=== PATIENT | female | born 1935 | race Caucasian/White ===

== ENCOUNTER 2018-01-02 10:45 | Emergency (ER) | payer MEDICARE, OTHER ==
[~2018-01-02] VITALS: Ht 170.2 cm; Wt 88.0 kg
[~2018-01-02 10:45] MED LIST: Augmentin 875-1 EACH PO; CARV6.25 PO; CEPH500 PO; CLON.2; CLON.2 PO; DILT120 PO; FAMO20 PO; FLUO20; FURO40 PO; GABA100 PO; HYDACE5; HYDR1TAB94 PO; Hydrocodone-Ap1 EA23 PO; IBUP800; LANS15EC; LAVAP17G PO; LEVSOD100 PO; LOSA25 PO; OXYACE5T PO; Omeprazole20 M1 PO; PHENA200 PO; RXPHEN200 PO; RXSULTRIDS PO; SUCR1 PO; SULTRIDS PO; TRIAOIA; WARF2.5 PO; XARELTO15 MG PO
[2018-01-02 11:32] LABS: BASOPHILS ABSOLUTE AUTO 0.02 K/mm3 (0.00-0.23); BASOPHILS PERCENT AUTO 0 % (0-2); EOSINOPHILS PERCENT AUTO 0 % (0-6); Hematocrit 43.8 % (33.0-51.0); Hemoglobin 14.9 g/dL (11.5-16.0); IMMATURE GRAN ABSOLUTE AUTO 0.09 K/mm3 (0.00-0.10); IMMATURE GRAN PERCENT AUTO 1 % (0-1); LYMPHOCYTES ABSOLUTE AUTO 2.36 K/mm3 (0.84-5.20); LYMPHOCYTES PERCENT AUTO 26 % (21-46); MONOCYTES ABSOLUTE AUTO 1.05 K/mm3 (0.16-1.47); MONOCYTES PERCENT AUTO 12 % (4-13); Mean Corpuscular HGB 34.6 pg (26.0-34.0); Mean Corpuscular Volume 102 fL (80-100); Mean Platelet Volume 10.2 fL (9.1-12.4); NEUTROPHILS ABSOLUTE AUTO 5.59 K/mm3 (1.96-9.15); NEUTROPHILS PERCENT AUTO 61 % (41-73); Platelet Count 142 K/mm3 (150-400); RDW Coefficient Variation 13.1 % (11.7-14.2); RDW Standard Deviation 49.1 fL (35.1-46.3); Red Blood Cell Count 4.31 M/mm3 (3.80-5.20); White Blood Cell Count 9.11 K/mm3 (4.00-11.30)
[2018-01-02 11:44] LABS: International Normalized Ratio 1.26; Prothrombin Time Results 13.2 Sec (9.7-11.5)
[2018-01-02 11:50] LABS: Alanine Aminotransfer (ALT/SGP 22 U/L (12-78); Albumin, Blood 3.5 g/dL (3.4-5.0); Albumin/Globulin Ratio 0.9 (0.8-1.8); Alk Phos 86 U/L (50-136); Anion Gap 10 mmol/L (6-16); Aspartate Aminotrans (AST/SGOT 13 U/L (12-37); Bilirubin, Total 0.8 mg/dL (0.1-1.0); Blood Urea Nitrogen 35 mg/dL (8-24); Bun/Creatinine Ratio 26.3 (12.0-20.0); CO2, Blood 23 mmol/L (21-32); Calcium, Blood 8.6 mg/dL (8.5-10.1); Chloride, Blood 107 mmol/L (98-108); Creatinine, Blood 1.33 mg/dL (0.40-1.00); Globulin, Blood 4.1 g/dL (2.2-4.0); Glomerular Filtration Rate 41 (60-); Glucose, Blood 170 mg/dL (70-99); Potassium, Blood 3.6 mmol/L (3.5-5.5); Sodium, Blood 140 mmol/L (136-145); Total Protein, Blood 7.6 g/dL (6.4-8.2); Troponin I <0.015 ng/mL (0.000-0.040)
== END 2018-01-02 16:04 | disposition home or self-care (01) ==
LOC: ER 10:45
PROVIDERS: Emergency Medicine; Physician Assistant
DX: I48.91 Unspecified atrial fibrillation (principal); I10 Essential (primary) hypertension; Z79.01 Long term (current) use of anticoagulants; Z79.899 Other long term (current) drug therapy
CPT/HCPCS: 36415; 71046; 71260; 80053; 83880; 84484; 85025; 85379; 85610; 93005; 93010; 96374; 99284; J7030; Q9967

== ENCOUNTER 2018-01-23 20:36 | Emergency (ER) | payer MEDICARE, OTHER ==
[~2018-01-23] VITALS: Ht 170.2 cm; Wt 85.3 kg
[2018-01-23 22:47] LABS: Source, Urine Voided
[2018-01-23 22:48] LABS: BASOPHILS ABSOLUTE AUTO 0.04 K/mm3 (0.00-0.23); BASOPHILS PERCENT AUTO 1 % (0-2); EOSINOPHILS PERCENT AUTO 0 % (0-6); Hematocrit 33.3 % (33.0-51.0); Hemoglobin 11.4 g/dL (11.5-16.0); IMMATURE GRAN ABSOLUTE AUTO 0.03 K/mm3 (0.00-0.10); IMMATURE GRAN PERCENT AUTO 1 % (0-1); LYMPHOCYTES PERCENT AUTO 33 % (21-46); MONOCYTES ABSOLUTE AUTO 1.06 K/mm3 (0.16-1.47); MONOCYTES PERCENT AUTO 17 % (4-13); Mean Corpuscular HGB 34.9 pg (26.0-34.0); Mean Corpuscular HGB Conc 34.2 g/dL (31.5-36.5); Mean Corpuscular Volume 102 fL (80-100); Mean Platelet Volume 9.8 fL (9.1-12.4); NEUTROPHILS ABSOLUTE AUTO 3.19 K/mm3 (1.96-9.15); NEUTROPHILS PERCENT AUTO 50 % (41-73); Platelet Count 161 K/mm3 (150-400); RDW Coefficient Variation 13.7 % (11.7-14.2); RDW Standard Deviation 51.1 fL (35.1-46.3); Red Blood Cell Count 3.27 M/mm3 (3.80-5.20); White Blood Cell Count 6.42 K/mm3 (4.00-11.30)
[2018-01-23 22:49] LABS: Bilirubin, Urine Neg (Neg); Blood, Urine 1+ (Neg); Glucose Qualitative, Urine Neg (Neg); Ketones, Urine Neg (Neg); Leukocyte Esterase, Urine 3+ (Neg); Nitrite, Urine Neg (Neg); Protein, Urine Neg (Neg); Urobilinogen, Urine NORM (Normal)
[2018-01-23 23:00] LABS: Appearance, Urine Hazy (Clear); Color, Urine Yellow (P-Yellow)
[2018-01-23 23:01] LABS: Amorphous Light (0-Heavy); Bacteria Few /hpf; Red Blood Cells, Urine 0-2 /hpf (0-2); Squamous Epithelial Cells Rare /hpf (Few); White Blood Cells, Urine 50-100 /hpf (0-5)
[2018-01-23 23:41] LABS: Albumin, Blood 2.9 g/dL (3.4-5.0); Albumin/Globulin Ratio 0.8 (0.8-1.8); Bilirubin, Total 0.4 mg/dL (0.1-1.0); Bun/Creatinine Ratio 16.9 (12.0-20.0); Calcium, Blood 8.5 mg/dL (8.5-10.1); Creatinine, Blood 1.18 mg/dL (0.40-1.00); Globulin, Blood 3.5 g/dL (2.2-4.0); Potassium, Blood 3.4 mmol/L (3.5-5.5); Total Protein, Blood 6.4 g/dL (6.4-8.2)
[2018-01-24] MEDS ORDERED: Zofran Odt4 MG SL (00:11)
[2018-01-24] MEDS ORDERED: Norco 5-325 Ta1 EACH PO (00:11)
[2018-01-24] MEDS ORDERED: Augmentin 875-1 EACH PO (00:13)
== END 2018-01-24 00:37 | disposition home or self-care (01) ==
LOC: ER 20:36
PROVIDERS: Physician Assistant
DX: K57.32 Diverticulitis of large intestine without perforation or abscess without bleeding (principal); I48.91 Unspecified atrial fibrillation; I10 Essential (primary) hypertension; Z79.899 Other long term (current) drug therapy; Z79.01 Long term (current) use of anticoagulants
CPT/HCPCS: 36415; 74176; 80053; 81001; 83690; 85025; 87086; 93005; 93010; 96374; 99284; J3010

== ENCOUNTER → 2019-02-21 | Outpatient (CLI) | payer MEDICARE ==
[~2019-02-21] MED LIST changes: +Norco 5-325 Ta1 EACH PO; +PANT40 PO; +Zofran Odt4 MG SL
== END | disposition home or self-care (01) ==
LOC: LAB SHORT 15:35 → LAB SRC 15:35
DX: N39.0 Urinary tract infection, site not specified (principal); M54.5 Low back pain
CPT/HCPCS: 87077; 87086; 87186

== ENCOUNTER 2019-04-13 21:58 | Emergency (ER) | payer MEDICARE, OTHER ==
[~2019-04-13] VITALS: Ht 167.6 cm; Wt 81.7 kg
[2019-04-13 22:28] LABS: BASOPHILS ABSOLUTE AUTO 0.03 K/mm3 (0.00-0.23); BASOPHILS PERCENT AUTO 1 % (0-2); EOSINOPHILS PERCENT AUTO 0 % (0-6); Hematocrit 35.1 % (33.0-51.0); Hemoglobin 11.5 g/dL (11.5-16.0); IMMATURE GRAN ABSOLUTE AUTO 0.02 K/mm3 (0.00-0.10); IMMATURE GRAN PERCENT AUTO 0 % (0-1); LYMPHOCYTES ABSOLUTE AUTO 2.86 K/mm3 (0.84-5.20); LYMPHOCYTES PERCENT AUTO 47 % (21-46); MONOCYTES ABSOLUTE AUTO 1.06 K/mm3 (0.16-1.47); MONOCYTES PERCENT AUTO 17 % (4-13); Mean Corpuscular HGB 35.5 pg (26.0-34.0); Mean Corpuscular HGB Conc 32.8 g/dL (31.5-36.5); Mean Corpuscular Volume 108 fL (80-100); NEUTROPHILS ABSOLUTE AUTO 2.15 K/mm3 (1.96-9.15); NEUTROPHILS PERCENT AUTO 35 % (41-73); Platelet Count 110 K/mm3 (150-400); RDW Coefficient Variation 13.5 % (11.7-14.2); RDW Standard Deviation 54.6 fL (35.1-46.3); Red Blood Cell Count 3.24 M/mm3 (3.80-5.20); White Blood Cell Count 6.12 K/mm3 (4.00-11.30)
[2019-04-13 22:45] LABS: International Normalized Ratio 1.14; Prothrombin Time Results 11.9 Sec (9.7-11.5)
[2019-04-13 22:47] LABS: Alanine Aminotransfer (ALT/SGP 17 U/L (12-78); Albumin, Blood 3.7 g/dL (3.4-5.0); Albumin/Globulin Ratio 1.2 (0.8-1.8); Alk Phos 84 U/L (50-136); Anion Gap 5 mmol/L (6-16); Aspartate Aminotrans (AST/SGOT 20 U/L (12-37); Bilirubin, Total 0.4 mg/dL (0.1-1.0); Blood Urea Nitrogen 25 mg/dL (8-24); CO2, Blood 28 mmol/L (21-32); Calcium, Blood 8.6 mg/dL (8.5-10.1); Chloride, Blood 106 mmol/L (98-108); Creatinine, Blood 1.39 mg/dL (0.40-1.00); Globulin, Blood 3.2 g/dL (2.2-4.0); Glomerular Filtration Rate 38 (60-); Glucose, Blood 124 mg/dL (70-99); Potassium, Blood 4.2 mmol/L (3.5-5.5); Sodium, Blood 139 mmol/L (136-145); Total Protein, Blood 6.9 g/dL (6.4-8.2); Troponin I <0.015 ng/mL (0.000-0.040)
[2019-04-14] MEDS ORDERED: Carafate1 GM/10 ML PO (03:05)
== END 2019-04-14 03:15 | disposition home or self-care (01) ==
LOC: ER 21:58
PROVIDERS: Emergency Medicine
DX: R07.9 Chest pain, unspecified (principal); I10 Essential (primary) hypertension; I48.91 Unspecified atrial fibrillation; Z87.891 Personal history of nicotine dependence; Z79.899 Other long term (current) drug therapy
CPT/HCPCS: 36415; 71046; 71260; 80053; 84484; 85025; 85379; 85610; 93005; 93010; 96360-59; 99285-25; J7030; Q9967

== ENCOUNTER 2020-08-03 08:44 | Emergency (ER) | payer MEDICARE, OTHER ==
[~2020-08-03] VITALS: Ht 170.2 cm; Wt 90.7 kg
[~2020-08-03 08:44] MED LIST changes: +Carafate1 GM/10 ML PO
[2020-08-03] MEDS ORDERED: DULOXETINE (09:17)
[2020-08-03] MEDS ORDERED: ATORVASTATIN TAB 40M (09:17)
[2020-08-03] MEDS ORDERED: METOPROLOL SUCC25 MG PO (09:18)
[2020-08-03 09:35] LABS: BASOPHILS ABSOLUTE AUTO 0.04 K/mm3 (0.00-0.23); BASOPHILS PERCENT AUTO 0 % (0-2); EOSINOPHILS PERCENT AUTO 0 % (0-6); Hematocrit 41.9 % (33.0-51.0); Hemoglobin 14.1 g/dL (11.5-16.0); IMMATURE GRAN ABSOLUTE AUTO 0.05 K/mm3 (0.00-0.10); IMMATURE GRAN PERCENT AUTO 0 % (0-1); LYMPHOCYTES ABSOLUTE AUTO 1.91 K/mm3 (0.84-5.20); LYMPHOCYTES PERCENT AUTO 14 % (21-46); MONOCYTES ABSOLUTE AUTO 1.01 K/mm3 (0.16-1.47); MONOCYTES PERCENT AUTO 7 % (4-13); Mean Corpuscular HGB 35.6 pg (26.0-34.0); Mean Corpuscular HGB Conc 33.7 g/dL (31.5-36.5); Mean Corpuscular Volume 106 fL (80-100); NEUTROPHILS ABSOLUTE AUTO 10.67 K/mm3 (1.96-9.15); NEUTROPHILS PERCENT AUTO 78 % (41-73); Platelet Count 144 K/mm3 (150-400); RDW Coefficient Variation 13.3 % (11.7-14.2); RDW Standard Deviation 52.5 fL (35.1-46.3); Red Blood Cell Count 3.96 M/mm3 (3.80-5.20); White Blood Cell Count 13.68 K/mm3 (4.00-11.30)
[2020-08-03 10:01] LABS: Bun/Creatinine Ratio 17.6 (12.0-20.0); Calcium, Blood 9.2 mg/dL (8.5-10.1); Creatinine, Blood 1.08 mg/dL (0.40-1.00); Globulin, Blood 3.9 g/dL (2.2-4.0); Potassium, Blood 3.2 mmol/L (3.5-5.5); Total Protein, Blood 7.9 g/dL (6.4-8.2)
[2020-08-03 11:13] LABS: Source, Urine Clean Catch
[2020-08-03 11:23] LABS: Appearance, Urine Clear (Clear); Bilirubin, Urine Neg (Neg); Blood, Urine 2+ (Neg); Color, Urine Yellow (P-Yellow); Glucose Qualitative, Urine Neg (Neg); Ketones, Urine Neg (Neg); Leukocyte Esterase, Urine 1+ (Neg); Nitrite, Urine Neg (Neg); Protein, Urine 1+ (Neg); Urobilinogen, Urine NORM (Normal); pH, Urine 6.5 (5.0-8.0)
[2020-08-03 11:32] LABS: Bacteria Rare /hpf; Squamous Epithelial Cells Rare /hpf (Few)
[2020-08-03] MEDS ORDERED: CEFP200 PO (11:58)
== END 2020-08-03 12:02 | disposition home or self-care (01) ==
LOC: ER 08:44
PROVIDERS: Physician Assistant
DX: R10.31 Right lower quadrant pain (principal); I48.91 Unspecified atrial fibrillation; I10 Essential (primary) hypertension; Z79.01 Long term (current) use of anticoagulants; Z79.899 Other long term (current) drug therapy
CPT/HCPCS: 36415; 74177; 80053; 81001; 83690; 85025; 87077; 87086; 87147; 87186; 96374-59; 96375; 99284-25; A9270-GY; J1885; J2405; Q9967

== ENCOUNTER 2020-08-11 00:26 | Emergency (ER) | payer MEDICARE ==
[~2020-08-11] VITALS: Ht 170.2 cm; Wt 90.7 kg
[~2020-08-11 00:26] MED LIST changes: +ATORVASTATIN TAB 40M; +CEFP200 PO; +DULOXETINE; +METOPROLOL SUCC25 MG PO
[2020-08-11 01:13] LABS: BASOPHILS ABSOLUTE AUTO 0.04 K/mm3 (0.00-0.23); BASOPHILS PERCENT AUTO 0 % (0-2); EOSINOPHILS PERCENT AUTO 0 % (0-6); Hematocrit 33.7 % (33.0-51.0); Hemoglobin 11.3 g/dL (11.5-16.0); IMMATURE GRAN ABSOLUTE AUTO 0.14 K/mm3 (0.00-0.10); IMMATURE GRAN PERCENT AUTO 2 % (0-1); LYMPHOCYTES ABSOLUTE AUTO 2.49 K/mm3 (0.84-5.20); LYMPHOCYTES PERCENT AUTO 28 % (21-46); MONOCYTES ABSOLUTE AUTO 1.33 K/mm3 (0.16-1.47); MONOCYTES PERCENT AUTO 15 % (4-13); Mean Corpuscular HGB 35.3 pg (26.0-34.0); Mean Corpuscular HGB Conc 33.5 g/dL (31.5-36.5); Mean Corpuscular Volume 105 fL (80-100); Mean Platelet Volume 10.3 fL (9.1-12.4); NEUTROPHILS ABSOLUTE AUTO 4.96 K/mm3 (1.96-9.15); NEUTROPHILS PERCENT AUTO 55 % (41-73); Platelet Count 152 K/mm3 (150-400); RDW Coefficient Variation 13.4 % (11.7-14.2); RDW Standard Deviation 51.5 fL (35.1-46.3); White Blood Cell Count 8.96 K/mm3 (4.00-11.30)
[2020-08-11 01:30] LABS: Albumin/Globulin Ratio 0.8 (0.8-1.8); Bilirubin, Total 0.4 mg/dL (0.1-1.0); Bun/Creatinine Ratio 17.8 (12.0-20.0); Calcium, Blood 8.6 mg/dL (8.5-10.1); Creatinine, Blood 1.18 mg/dL (0.40-1.00); Globulin, Blood 3.6 g/dL (2.2-4.0); Potassium, Blood 3.3 mmol/L (3.5-5.5); Total Protein, Blood 6.6 g/dL (6.4-8.2)
[2020-08-11 01:38] LABS: International Normalized Ratio No Calc; Prothrombin Time Results >90.0 Sec (9.7-11.5)
== END 2020-08-11 02:10 | disposition home or self-care (01) ==
LOC: ER 00:26
PROVIDERS: Emergency Medicine
DX: T45.511A Poisoning by anticoagulants, accidental (unintentional), initial encounter (principal); R10.9 Unspecified abdominal pain; R19.5 Other fecal abnormalities; I48.91 Unspecified atrial fibrillation; I10 Essential (primary) hypertension; Z79.01 Long term (current) use of anticoagulants; Z87.891 Personal history of nicotine dependence; Z79.899 Other long term (current) drug therapy
CPT/HCPCS: 36415; 80053; 85025; 85610; 99283

== ENCOUNTER 2020-12-28 11:07 | Emergency (ER) | payer MEDICARE, OTHER ==
[~2020-12-28] VITALS: Ht 170.2 cm; Wt 88.0 kg
[~2020-12-28 11:07] MED LIST changes: -ATORVASTATIN TAB 40M; -FURO40 PO; -LEVSOD100 PO; -METOPROLOL SUCC25 MG PO
[2020-12-28 12:02] LABS: BASOPHILS ABSOLUTE AUTO 0.02 K/mm3 (0.00-0.23); BASOPHILS PERCENT AUTO 0 % (0-2); EOSINOPHILS ABSOLUTE AUTO 0.02 K/mm3 (0.00-0.68); EOSINOPHILS PERCENT AUTO 0 % (0-6); Hematocrit 28.8 % (33.0-51.0); Hemoglobin 9.7 g/dL (11.5-16.0); IMMATURE GRAN ABSOLUTE AUTO 0.04 K/mm3 (0.00-0.10); IMMATURE GRAN PERCENT AUTO 1 % (0-1); LYMPHOCYTES ABSOLUTE AUTO 1.76 K/mm3 (0.84-5.20); LYMPHOCYTES PERCENT AUTO 26 % (21-46); MONOCYTES ABSOLUTE AUTO 1.12 K/mm3 (0.16-1.47); MONOCYTES PERCENT AUTO 17 % (4-13); Mean Corpuscular HGB 34.9 pg (26.0-34.0); Mean Corpuscular HGB Conc 33.7 g/dL (31.5-36.5); Mean Corpuscular Volume 104 fL (80-100); Mean Platelet Volume 10.7 fL (9.1-12.4); NEUTROPHILS PERCENT AUTO 56 % (41-73); Platelet Count 137 K/mm3 (150-400); RDW Coefficient Variation 14.2 % (11.7-14.2); Red Blood Cell Count 2.78 M/mm3 (3.80-5.20); White Blood Cell Count 6.76 K/mm3 (4.00-11.30)
[2020-12-28 12:15] LABS: International Normalized Ratio 1.17; Prothrombin Time Results 12.4 Sec (9.7-11.5)
[2020-12-28 12:19] LABS: Albumin, Blood 2.3 g/dL (3.4-5.0); Albumin/Globulin Ratio 0.5 (0.8-1.8); Bilirubin, Total 1.2 mg/dL (0.1-1.0); Bun/Creatinine Ratio 14.4 (12.0-20.0); Calcium, Blood 8.7 mg/dL (8.5-10.1); Creatinine, Blood 1.04 mg/dL (0.40-1.00); Globulin, Blood 4.2 g/dL (2.2-4.0); Potassium, Blood 3.1 mmol/L (3.5-5.5); Total Protein, Blood 6.5 g/dL (6.4-8.2)
[2020-12-28] MEDS ORDERED: METOPROLOL SUCC25 MG PO (14:39)
[2020-12-28] MEDS ORDERED: ATOR40TA PO (14:39)
[2020-12-28] MEDS ORDERED: HYDROCODONE-AC1 EA11 PO (14:40)
[2020-12-28] MEDS ORDERED: DILT120 PO (14:40)
[2020-12-28] MEDS ORDERED: FURO40 PO (14:41)
[2020-12-28] MEDS ORDERED: OMEP20ER PO (14:41)
[2020-12-28] MEDS ORDERED: ELIQUIS5 M3 PO (14:41)
[2020-12-28] MEDS ORDERED: LEVSOD100 PO (14:42)
[2020-12-28 17:25] LABS: Influenza A, PCR NEGATIVE (NEGATIVE); Influenza B, PCR NEGATIVE (NEGATIVE); Resp Syncytial Virus, PCR NEGATIVE (NEGATIVE); SARS-Cov-2 (COVID-19) PCR, MMC NEGATIVE (NEGATIVE)
== END 2020-12-28 16:40 | disposition short-term general hospital (02) ==
LOC: ER 11:07
PROVIDERS: Emergency Medicine
DX: I63.233 Cerebral infarction due to unspecified occlusion or stenosis of bilateral carotid arteries (principal); G83.23 Monoplegia of upper limb affecting right nondominant side; Z79.01 Long term (current) use of anticoagulants; Z79.899 Other long term (current) drug therapy
CPT/HCPCS: 0241U; 36415; 70450; 70496; 70498; 80053; 85025; 85610; 93005; 93010; 99285-25; Q9967

== ENCOUNTER → 2021-01-28 | Outpatient (CLI) | payer MEDICARE, OTHER ==
[~2021-01-28] MED LIST changes: +ATOR40TA PO; +ELIQUIS5 M3 PO; +FURO40 PO; +HYDROCODONE-AC1 EA11 PO; +LEVSOD100 PO; +METOPROLOL SUCC25 MG PO; +OMEP20ER PO
[2021-01-28 16:33] LABS: C-REACTIVE PROTEIN, EXT RANGE <0.290 mg/dL (0.000-0.300)
[2021-01-28 16:35] LABS: Alanine Aminotransfer (ALT/SGP 14 U/L (12-78); Albumin, Blood 3.5 g/dL (3.4-5.0); Albumin/Globulin Ratio 1.1 (0.8-1.8); Alk Phos 71 U/L (50-136); Anion Gap 10 mmol/L (6-16); Aspartate Aminotrans (AST/SGOT 16 U/L (12-37); Blood Urea Nitrogen 14 mg/dL (8-24); Bun/Creatinine Ratio 13.1 (12.0-20.0); CHOL/HDL RATIO 2.7; CO2, Blood 22 mmol/L (21-32); Calcium, Blood 8.2 mg/dL (8.5-10.1); Chloride, Blood 107 mmol/L (98-108); Cholesterol 126 mg/dL (50-200); Creatinine, Blood 1.07 mg/dL (0.40-1.00); Globulin, Blood 3.3 g/dL (2.2-4.0); Glomerular Filtration Rate 52 (60-); Glucose, Blood 151 mg/dL (70-99); HDL Cholesterol 46 mg/dL (>39); LDL/HDL RATIO 1.2; Low Density Lipoprotein Chol 55 mg/dL (0-110); Potassium, Blood 3.3 mmol/L (3.5-5.5); Sodium, Blood 139 mmol/L (136-145); Total Protein, Blood 6.8 g/dL (6.4-8.2); Triglycerides 126 mg/dL (30-160); Very Low Density Lipoprot Chol 25 mg/dL (6-32)
[2021-01-28 19:42] LABS: BASOPHILS ABSOLUTE AUTO 0.03 K/mm3 (0.00-0.23); BASOPHILS PERCENT AUTO 1 % (0-2); EOSINOPHILS PERCENT AUTO 0 % (0-6); Hematocrit 34.7 % (33.0-51.0); IMMATURE GRAN ABSOLUTE AUTO 0.03 K/mm3 (0.00-0.10); IMMATURE GRAN PERCENT AUTO 1 % (0-1); LYMPHOCYTES ABSOLUTE AUTO 2.58 K/mm3 (0.84-5.20); LYMPHOCYTES PERCENT AUTO 44 % (21-46); MONOCYTES ABSOLUTE AUTO 0.64 K/mm3 (0.16-1.47); MONOCYTES PERCENT AUTO 11 % (4-13); Mean Corpuscular HGB 34.8 pg (26.0-34.0); Mean Corpuscular HGB Conc 31.7 g/dL (31.5-36.5); Mean Corpuscular Volume 110 fL (80-100); Mean Platelet Volume 11.5 fL (9.1-12.4); NEUTROPHILS ABSOLUTE AUTO 2.53 K/mm3 (1.96-9.15); NEUTROPHILS PERCENT AUTO 44 % (41-73); Platelet Count 135 K/mm3 (150-400); RDW Coefficient Variation 17.2 % (11.7-14.2); RDW Standard Deviation 70.8 fL (35.1-46.3); Red Blood Cell Count 3.16 M/mm3 (3.80-5.20); White Blood Cell Count 5.81 K/mm3 (4.00-11.30)
== END | disposition home or self-care (01) ==
LOC: LAB SHORT 12:30 → LAB 12:30
PROVIDERS: Physician Assistant
DX: E78.2 Mixed hyperlipidemia (principal); E11.22 Type 2 diabetes mellitus with diabetic chronic kidney disease; N18.30 Chronic kidney disease, stage 3 unspecified; D63.1 Anemia in chronic kidney disease
CPT/HCPCS: 80053; 80061; 83036; 84443; 85025; 86140

== ENCOUNTER 2021-11-08 20:07 | Emergency (ER) | payer OTHER ==
[~2021-11-08] VITALS: Ht 170.2 cm; Wt 86.2 kg
[2021-11-08 21:01] LABS: BASOPHILS ABSOLUTE AUTO 0.04 K/mm3 (0.00-0.23); BASOPHILS PERCENT AUTO 1 % (0-2); EOSINOPHILS ABSOLUTE AUTO 0.09 K/mm3 (0.00-0.68); EOSINOPHILS PERCENT AUTO 2 % (0-6); Hematocrit 37.7 % (33.0-51.0); Hemoglobin 12.8 g/dL (11.5-16.0); IMMATURE GRAN ABSOLUTE AUTO 0.03 K/mm3 (0.00-0.10); IMMATURE GRAN PERCENT AUTO 1 % (0-1); LYMPHOCYTES ABSOLUTE AUTO 2.57 K/mm3 (0.84-5.20); LYMPHOCYTES PERCENT AUTO 43 % (21-46); MONOCYTES ABSOLUTE AUTO 0.96 K/mm3 (0.16-1.47); MONOCYTES PERCENT AUTO 16 % (4-13); Mean Corpuscular HGB 35.3 pg (26.0-34.0); Mean Corpuscular Volume 104 fL (80-100); Mean Platelet Volume 11.3 fL (9.1-12.4); NEUTROPHILS PERCENT AUTO 38 % (41-73); Platelet Count 107 K/mm3 (150-400); RDW Coefficient Variation 13.9 % (11.7-14.2); RDW Standard Deviation 52.6 fL (35.1-46.3); Red Blood Cell Count 3.63 M/mm3 (3.80-5.20); White Blood Cell Count 5.99 K/mm3 (4.00-11.30)
[2021-11-08 21:35] LABS: Albumin, Blood 3.9 g/dL (3.4-5.0); Albumin/Globulin Ratio 1.2 (0.8-1.8); Bilirubin, Total 0.5 mg/dL (0.1-1.0); Bun/Creatinine Ratio 10.9 (12.0-20.0); Calcium, Blood 8.8 mg/dL (8.5-10.1); Creatinine, Blood 1.38 mg/dL (0.40-1.00); Globulin, Blood 3.2 g/dL (2.2-4.0); Potassium, Blood 2.6 mmol/L (3.5-5.5); Total Protein, Blood 7.1 g/dL (6.4-8.2)
[2021-11-09 00:32] LABS: Influenza A, PCR NEGATIVE (NEGATIVE); Influenza B, PCR NEGATIVE (NEGATIVE); Resp Syncytial Virus, PCR NEGATIVE (NEGATIVE)
[2021-11-09 00:35] LABS: SARS-Cov-2 (COVID-19) PCR, MMC POSITIVE (NEGATIVE)
[2021-11-09 03:30] LABS: Calcium, Ionized (POC) 1.09 mmol/L (1.10-1.46); Chloride (POC) 98 mmol/L (98-108); Creatinine (POC) 1.2 mg/dL (0.6-1.0); Glucose (ISTAT POC) 140 mg/dL (70-99); Hemoglobin (POC) 11.2 g/dL (12.0-16.0); Potassium (POC) 3.1 mmol/L (3.5-5.5); Sodium (POC) 140 mmol/L (135-148); Total CO2 (POC) 32 mmol/L (21-32)
[2021-11-09] MEDS ORDERED: POTCHL20ER PO (03:40)
== END 2021-11-09 04:00 | disposition home or self-care (01) ==
LOC: ER 20:07
PROVIDERS: Emergency Medicine; Physician Assistant
DX: U07.1 COVID-19 (principal); E87.6 Hypokalemia; I10 Essential (primary) hypertension; Z87.891 Personal history of nicotine dependence
CPT/HCPCS: 0241U; 36415; 71045; 80047; 80053; 83880; 84484; 85014; 85025; 93005; 93010; 96365; 99285-25; A9270; J3480; J7030

== ENCOUNTER → 2022-03-08 | Outpatient (CLI) | payer OTHER ==
[~2022-03-08] MED LIST changes: +POTCHL20ER PO
[2022-03-08 15:51] LABS: Source, Urine Clean Catch
[2022-03-08 18:04] LABS: Appearance, Urine Hazy (Clear); Bilirubin, Urine Neg (Neg); Blood, Urine 2+ (Neg); Color, Urine Yellow (P-Yellow); Glucose Qualitative, Urine Neg (Neg); Ketones, Urine Neg (Neg); Leukocyte Esterase, Urine 2+ (Neg); Nitrite, Urine Neg (Neg); Protein, Urine Neg (Neg); Specific Gravity, Urine 1.015 (1.003-1.022); Urobilinogen, Urine NORM (Normal)
[2022-03-08 18:30] LABS: Bacteria Mod /hpf; Squamous Epithelial Cells Mod /hpf (Few); White Blood Cells, Urine 25-50 /hpf (0-5)
== END ==
LOC: LAB SHORT 15:49
PROVIDERS: Physician Assistant
DX: R30.0 Dysuria (principal)
CPT/HCPCS: 81001

== ENCOUNTER 2022-03-09 13:52 | Observation (INO) | payer OTHER ==
[~2022-03-09] VITALS: Ht 167.6 cm; Wt 80.4 kg
[2022-03-09 14:31] LABS: BASOPHILS ABSOLUTE AUTO 0.05 K/mm3 (0.00-0.23); BASOPHILS PERCENT AUTO 1 % (0-2); EOSINOPHILS ABSOLUTE AUTO 0.01 K/mm3 (0.00-0.68); EOSINOPHILS PERCENT AUTO 0 % (0-6); Hematocrit 30.5 % (33.0-51.0); IMMATURE GRAN ABSOLUTE AUTO 0.03 K/mm3 (0.00-0.10); IMMATURE GRAN PERCENT AUTO 1 % (0-1); LYMPHOCYTES ABSOLUTE AUTO 1.26 K/mm3 (0.84-5.20); LYMPHOCYTES PERCENT AUTO 25 % (21-46); MONOCYTES ABSOLUTE AUTO 0.78 K/mm3 (0.16-1.47); MONOCYTES PERCENT AUTO 15 % (4-13); Mean Corpuscular HGB 35.8 pg (26.0-34.0); Mean Corpuscular HGB Conc 32.8 g/dL (31.5-36.5); Mean Corpuscular Volume 109 fL (80-100); Mean Platelet Volume 10.4 fL (9.1-12.4); NEUTROPHILS ABSOLUTE AUTO 2.99 K/mm3 (1.96-9.15); NEUTROPHILS PERCENT AUTO 58 % (41-73); Platelet Count 109 K/mm3 (150-400); RDW Coefficient Variation 14.3 % (11.7-14.2); RDW Standard Deviation 57.1 fL (35.1-46.3); Red Blood Cell Count 2.79 M/mm3 (3.80-5.20); White Blood Cell Count 5.12 K/mm3 (4.00-11.30)
[2022-03-09 14:42] LABS: International Normalized Ratio 1.09; Prothrombin Time Results 11.4 Sec (9.7-11.5)
[2022-03-09 14:52] LABS: Albumin, Blood 3.2 g/dL (3.4-5.0); Albumin/Globulin Ratio 0.8 (0.8-1.8); Bilirubin, Total 0.7 mg/dL (0.1-1.0); Calcium, Blood 8.7 mg/dL (8.5-10.1); Creatinine, Blood 1.5 mg/dL (0.40-1.00); Globulin, Blood 3.8 g/dL (2.2-4.0); Potassium, Blood 3.5 mmol/L (3.5-5.5)
[2022-03-09 15:14] LABS: Source, Urine Voided
[2022-03-09 15:19] LABS: Appearance, Urine Clear (Clear); Bilirubin, Urine Neg (Neg); Blood, Urine 2+ (Neg); Color, Urine Yellow (P-Yellow); Glucose Qualitative, Urine Neg (Neg); Ketones, Urine Neg (Neg); Leukocyte Esterase, Urine 1+ (Neg); Nitrite, Urine Neg (Neg); Protein, Urine Neg (Neg); Specific Gravity, Urine 1.015 (1.003-1.022); Urobilinogen, Urine NORM (Normal)
[2022-03-09 16:15] LABS: Bacteria Few /hpf; Squamous Epithelial Cells Mod /hpf (Few)
[2022-03-10 02:11] LABS: BASOPHILS ABSOLUTE AUTO 0.07 K/mm3 (0.00-0.23); BASOPHILS PERCENT AUTO 1 % (0-2); EOSINOPHILS ABSOLUTE AUTO 0.16 K/mm3 (0.00-0.68); EOSINOPHILS PERCENT AUTO 3 % (0-6); Hematocrit 29.1 % (33.0-51.0); Hemoglobin 9.6 g/dL (11.5-16.0); IMMATURE GRAN ABSOLUTE AUTO 0.02 K/mm3 (0.00-0.10); IMMATURE GRAN PERCENT AUTO 0 % (0-1); LYMPHOCYTES ABSOLUTE AUTO 1.61 K/mm3 (0.84-5.20); LYMPHOCYTES PERCENT AUTO 28 % (21-46); MONOCYTES ABSOLUTE AUTO 0.88 K/mm3 (0.16-1.47); MONOCYTES PERCENT AUTO 16 % (4-13); Mean Corpuscular HGB 36.6 pg (26.0-34.0); Mean Corpuscular Volume 111 fL (80-100); Mean Platelet Volume 10.2 fL (9.1-12.4); NEUTROPHILS ABSOLUTE AUTO 2.95 K/mm3 (1.96-9.15); NEUTROPHILS PERCENT AUTO 52 % (41-73); Platelet Count 106 K/mm3 (150-400); RDW Coefficient Variation 14.6 % (11.7-14.2); RDW Standard Deviation 58.4 fL (35.1-46.3); Red Blood Cell Count 2.62 M/mm3 (3.80-5.20); White Blood Cell Count 5.69 K/mm3 (4.00-11.30)
[2022-03-10 02:29] LABS: Albumin, Blood 3.1 g/dL (3.4-5.0); Albumin/Globulin Ratio 0.9 (0.8-1.8); Bilirubin, Total 0.6 mg/dL (0.1-1.0); Bun/Creatinine Ratio 13.7 (12.0-20.0); Calcium, Blood 8.6 mg/dL (8.5-10.1); Creatinine, Blood 1.24 mg/dL (0.40-1.00); Globulin, Blood 3.5 g/dL (2.2-4.0); Potassium, Blood 4.2 mmol/L (3.5-5.5); Total Protein, Blood 6.6 g/dL (6.4-8.2)
--- NOTE | 2022-03-10 06:18 | NUR ---
SHIFT SUMMARY ASSUMED CARE OF PT AROUND 1999. PT IS A/OX4 BUT DEAF SO IT IS DIFFICULT TO COMMUNICATE. PT ABLE TO WRITE WORDS AND CAN MAKE GESTURES TO MAKE NEEDS KNOWN. HEART SOUNDS REGULAR, PT REMAINEDIN SINUS T/O THE NIGHT. LUNG SOUNDS CLEAR. PT WAS A 1P ASSIST TO BSC. URINE CLEAR AND YELLOW WITH SOME SEDIMENT. PT HAS SOME BRUSING TO BUTTOCK AND BACK. AFTER WRITING TO PT , PT SAID SHE FELL ABOUT 1 MONTH AGO. HOSPITALIST CALLED FOR PAIN CONTROL. MEDICATIONS ORDERED AND GIVEN WITH LITTLE EFFECT.
--- NOTE | 2022-03-10 13:01 | NUR ---
PT IS ALERT AND ORIENTED. PT COMMUNICATES VIA ASL, BULK STATION OPERATOR COMPUTER NOT WORKING PRESENTLY, BOOK REPAIRER CAME TO TROUBLE SHOOT COMPUTER ALONG WITH PCU CHARGE NURSE. COMMUNICATED WITH PATIENT VIA WRITTEN WORD, THEN PATIENT'S SON ARRIVED AND IS PROVIDING TRANSLATION ASSISTANCE AT THIS TIME. PT STARTED TO COMPLAIN OF MIDSTERNAL CHEST PAIN THIS MORNING AFTER ECHO WAS COMPLETED, COMPLAINED OF 8/10 PAIN. NO CHANGE IN TELEMETRY OR VITAL SIGNS. DR. JOHNSON NOTIFIED, ORDERS FOR EKG AND STAT TROPONIN GIVEN. DR. GALLAGHER CAME TO BEDSIDE TO EVALUATE THE PATIENT AND DISCUSS PLAN OF CARE WITH PATIENT AND SON.
--- NOTE | 2022-03-10 16:44 | NUR ---
Initial Pal Care visit made after Case conferencing with pt's RN, PT, and review of current and past admissions' EMR. Phone call to son to arrange family meeting with pt at 4pm today. Pt is deaf and communicates primarily per sign language and written notes. I wrote my name and introduced myself to pt. I reviewed information from Dr and pt's medical record with pt/family from previous cardiac work up in 2019, [address] and current echo and findings per my conversation and notes from Dr Candelario. Son signed information to pt and asked her to consider and decide what she wanted/goals at this time. Pt appeared calm and was clearly enjoying her family's visit. She was smiling and joking with DIL. She has a good rapport with both. She reports pain is improved currently because she'd had medication for pain about 1/2 hr prior to my visit. Much time spent going back and forth re: benefits vs burden of seeking surgical interventions or going home with hospice and family care. Pt does not want to be where visitors are limited. She eventually chose going home with family. She tried to defer to son, who felt that procedures and surgery/recovery were too high risk but he continued to ask pt what SHE wanted and she was finally able to state her wishes and seemed relieved and more relaxed afterwards. Quick survey of home needs done. DME needs identified and passed on to CM. CM was available and able to come meet with pt/family also this jakob to start process of hospice referral. RN and updated on my visit. New orders for Hospice referral and DNR entered per VO Dr Candelario. Planned with family to check in tomorrow. Pt's s/s appear well managed per pt and her RN with current analgesics and rx. She wants to go home tonight but understands waiting for Hospice availability and set up of DME happening tomorrow.
--- NOTE | 2022-03-10 17:16 | NUR ---
SHIFT SUMMARY PT HAS BEEN RESTING IN BED SINCE THIS RN ASSUMED CARE. PT HAS HAD URINARY URGENCY, THEY WILL CALL FOR ASSISTANCE BUT WILL NOT WAIT LONG BEFORE ATTEMPTING TO GET UP TO USE THE COMMODE. FAMILY HAS BEEN AT BEDSIDE FOR PERIODS THROUGHOUT THE DAY. PT HAS BEEN IN A PLEASANT MOOD DESPITE THE COMMUNICATION BARRIERS. PT HAS BEEN ABLE TO ROUGHLY COMMUNICATE NEEDS BY PANTOMIMING OR NOTE WRITING. PT HAS HAD NO FURTHER EPISODES OF CHEST PAIN. SBP HAS RANGED 151-126. ALL OTHER VITALS STABLE.
--- NOTE | 2022-03-10 23:24 | NUR ---
Report given at 2320, pt to go into room 364 Med Surg Richard RN
--- NOTE | 2022-03-11 00:09 | NUR ---
PT ARRIVED ON FLOOR AT 1145. PT WAS UPSET ABOUT MOVING IN THE MIDDLE OF THE NIGHT AND IS NOW UNABLE TO SLEEP. PT IS ABLE TO COMMUNICATE VIA SIGN LANGUAGE
--- NOTE | 2022-03-11 05:05 | NUR ---
PT ARRIVED AT 2345 FROM PCU. PT WAS UPSET ABOUT TRANSFERRING IN THE MIDDLE OF THE NIGHT. PAIN MEDICATION GIVEN AT 0100. PT ABLE TO SIGN AND WRITE COMMUNICATION.
[2022-03-11 05:38] LABS: Hematocrit 25.2 % (33.0-51.0)
[2022-03-11 06:03] LABS: Bun/Creatinine Ratio 16.5 (12.0-20.0); Calcium, Blood 8.6 mg/dL (8.5-10.1); Creatinine, Blood 1.39 mg/dL (0.40-1.00); Potassium, Blood 4.2 mmol/L (3.5-5.5)
[2022-03-11 10:13] LABS: Hematocrit 26.7 % (33.0-51.0); Hemoglobin 8.5 g/dL (11.5-16.0)
--- NOTE | 2022-03-11 13:09 | NUR ---
[address] CIFUENTES LOW BP. PLAN FOR HEART MEDS AND PT WANTING PAIN MEDS. DR GALLAGHER OKAYED HOLDING ALL HEART MEDS AND THINNER R/T DROPPIMG H/H. OKAYED TYLENOL ORDER, PLACED HAT IN COMMODE TO OBSERVE STOOL R/T DROPPING H/H. DISCUSSED DROPPING B/P TREND. DR TO ADJUST MEDS.
--- NOTE | 2022-03-11 15:11 | NUR ---
EMR reviewed and update obtained from RN. Brief visit to bedside twice today. Pt requesting pain medication for chest pain, symptomatic and CHF. Pt's CP was well managed yesterday with three [place] in 24 hrs. She has not had any [place] [employer] since this am. Tylenol given per RN today. Pt has had lower BP and Cardiac medications held along with [employer] [place] [employer] at this time per RN. Discussed pain management with RN and television camera operator. Pt has decided with her family for EOL and hospice care. Pt was not put on comfort care yesterday, stictly because her s/s were well managed at that time with current medications prn per eMAR and because she was expected to d/c home with hospice this am. Unfortunately, hospice agency chosen does not serve her area [place] of [place] so next availablility with another agency is Monday. Plan is for pt to remain in hospital until Monday and then dc home with same day Hospice admission. If pt's s/s are not well managed or she is not tolerating current medication and tx orders, I would advocate for comfort care while pt remains hospitalized. Will reassess in am.
--- NOTE | 2022-03-11 15:19 | NUR ---
PT C/O MODERATE MID-BACK PAIN. STATES IS NOT TOO BAD, NEW VITALS 118/57 P 70. WILL MED PER EMAR.
--- NOTE | 2022-03-11 15:41 | NUR ---
PT STATES PAIN ACTUALLY MORE ON BOTTOM THAN LOW BACK. GAVE TRAMADOL AND REPOSITIONED TO HER SIDE. PROPPED WITH PILLOWS. PT STATES SHOULD HELP. IS RESTING EYES CLOSED. BED IN LOW POSITION, CALL LITE IN REACH, CALLS APPROP BED ALARM ON FOR SAFETY
--- NOTE | 2022-03-11 19:34 | NUR ---
PT QUITE PLEASANT TODAY. IS DEAF/MUTE, WRITES AND READS WELL AND ALL QUESTIONS HANDLED THIS WAY TO PT SATISFACTION. BP LOW THIS AM. HELD ALL AM B/P MEDS. DID HOLD PAIN MEDS COULD LOWER ALSO. DISCUSSED WITH AT THAT TIME. NEW ORDERS FOR MEDS MADE. TYLENOL ORDERED FOR PAIN WHILE LOW B/P. PT KAT WELL. HAS REMAINED QUITE PLEASANT TODAY. PRESSURES CAME BACK UP, DID GIVE ULTRAM AND EVENTUALLY HYDROCODONE. PT KAT WELL. TURNING TO SIDE SEEMED TO HELP WELL TO KEEP PAIN OFF BOTTOM AND LOW BACK. NO OTHER CONCERNS NOTED. D/C PLANNING STATES LOOKING D/C MONDAY. SETTING UP HOSPICE FOR HOME. BED IN LOW POSITION, CALL LITE IN REACH, CALLS APPROP
[2022-03-12 04:39] LABS: Hematocrit 26.8 % (33.0-51.0); Hemoglobin 8.7 g/dL (11.5-16.0)
[2022-03-12 05:05] LABS: Calcium, Blood 8.9 mg/dL (8.5-10.1); Creatinine, Blood 1.19 mg/dL (0.40-1.00); Potassium, Blood 3.9 mmol/L (3.5-5.5)
--- NOTE | 2022-03-12 15:56 | NUR ---
Stopped for visit this afternoon. Pt clearly enjoying family visit. She has appeared comfortable both awake and asleep each time I went by her room today. Will check in tomorrow.
--- NOTE | 2022-03-12 17:44 | NUR ---
SHIFT SUMMARY NO ACUTE CHANGES DURING SHIFT. PT A&O, VERY PLEASANT, CALLS FOR ASSISTANCE. CONTINUE TO WRITE/READ NOTES FOR COMMUNICATION. ATTEMPTED COMPUTERIZED PLASTIC PARTS FABRICATOR TRIMMER WITH NO SUCCESS. PAIN MEDICATIONS ADMINISTERED PRN FOR BACK PAIN. X1 ASSIST FOR BEDSIDE COMMODE. FAMILY AT BEDSIDE THIS AFTERNOON. PLAN TO STILL D/C HOME WITH HOSPICE ON MONDAY. WILL CONTINUE TO MONITOR.
--- NOTE | 2022-03-12 22:04 | NUR ---
PT IS DEAF, COMMUNICATES USING PEN AND PAPER, SMALL FIRM BM THIS SHIFT. PT IS ON BOWEL CARE.
[2022-03-13 04:41] LABS: Hematocrit 28.8 % (33.0-51.0); Hemoglobin 9.1 g/dL (11.5-16.0)
--- NOTE | 2022-03-13 05:45 | NUR ---
PT IS DEAF AND USES WRITING TO COMMUNICATE, UP SEVERAL TIMES THIS SHIFT TO [facility], SMALL FIRM BM X1 THIS SHIFT. PT AWOKE ONCE ANXIOUS BUT WAS ABLE TO CALM DOWN AND GO BACK TO SLEEP, VSS. TELE MONITOR IN SR THIS SHIFT.
--- NOTE | 2022-03-13 14:09 | NUR ---
Review of EMR and case conferenced with pt's RN. Pt was asleep when I came by. Pt receiving [place] prn back and chest pain and getting good relief, able to rest and sleep per RN and notes. No family at bedside at this time. Updated RN on plan for d/c home with [facility] tomorrow and that most of this has been arranged on Monday. DME to be delivered to son/pt's home Monday am.
--- NOTE | 2022-03-13 18:02 | NUR ---
SHIFT SUMMARY PT DEAF AND MUTE BUT ABLE TO COMMUNICATE THROUGH FAMILY MEMBERS AND WRITING ON A NOTE PAD. PHONE NUMBER FOR DEAF OCCUPATIONAL PSYCHOLOGIST ON THE WHITE BOARD. PT HAS PAIN IN BACK RADIATING TO ABD. TREATED PER EMR FOR PAIN. PT TO DC HOME ON HOSPICE TOMORROW.
--- NOTE | 2022-03-14 05:56 | NUR ---
PT IS A/O AND DEAF, COMMUNICATES WITH PEN AND PAPER. MEDICATED THIS SHIFT FOR BACK PAIN, EGGCRATE MATTRESS APPLIED FOR PT COMFORT. BED ALARM ON, PT IS IMPULSIVE. 1-ASSIST TO BATHROOM WITH FWW. PT TO D/C TODAY HOME WITH HOSPICE. TELE IN SR.
[2022-03-14] MEDS ORDERED: ACET325 PO (12:10)
[2022-03-14] MEDS ORDERED: SENN187 PO (12:11)
[2022-03-14] MEDS ORDERED: VISBIOME 112.51 EACH PO (12:11)
[2022-03-14] MEDS ORDERED: DOCU100 PO (12:11)
[2022-03-14] MEDS ORDERED: AMOCLA875 PO (12:11)
[2022-03-14] MEDS ORDERED: PANT40 PO (12:11)
--- NOTE | 2022-03-14 12:20 | NUR ---
DISCHARGE SUMMARY PATIENT ALERT AND ORIENTED. DEAF AT BASELINE, USES ASL, AND WRITING ON PAPER TO COMMUNICATE. TOLERATING DIET AND LIQUIDS. DISCHARGE ORDERS OBTAINED. DISCHARGE HOME WITH FAMILY ON HOSPICE. PATIENT LEFT UNIT AT 1200 VIA MEDICAL TRANSPORT FOR HOME.
== END 2022-03-14 12:12 ==
LOC: ER 13:52 → MEDS 17:41 → PCU 17:41 → MEDS 17:41 → PCU 19:39 → MEDS 03-10 23:38
PROVIDERS: Emergency Medicine; Physician Assistant; Student in an Organized Health Care Education/Training Program; ADMIT Internal Medicine
DX: I35.2 Nonrheumatic aortic (valve) stenosis with insufficiency (principal); I48.91 Unspecified atrial fibrillation; Z79.01 Long term (current) use of anticoagulants; Z96.651 Presence of right artificial knee joint; H91.3 Deaf nonspeaking, not elsewhere classified; E87.6 Hypokalemia; I11.0 Hypertensive heart disease with heart failure; J96.01 Acute respiratory failure with hypoxia; I50.9 Heart failure, unspecified; I50.43 Acute on chronic combined systolic (congestive) and diastolic (congestive) heart failure; D64.9 Anemia, unspecified; E78.5 Hyperlipidemia, unspecified; K57.30 Diverticulosis of large intestine without perforation or abscess without bleeding; I27.20 Pulmonary hypertension, unspecified; Z66 Do not resuscitate
CPT/HCPCS: 36415; 71045; 74176; 80048; 80053; 81001; 82550; 83605; 83735; 83880; 84484; 85014; 85018; 85025; 85610; 85730; 87086; 93005; 93010; 93306; 94760; 96361; 96365; 96375; 97162; 97165; 97530; 99285-25; A9270; J0696; J1644; J2270; J2405; J3010; J3480; J7030; J7040